=== PATIENT | male | born 1980 | race Caucasian/White ===

== ENCOUNTER 2021-06-03 09:06 | Emergency (ER) | payer OTHER ==
[~2021-06-03] VITALS: Ht 177.8 cm; Wt 96.5 kg
[2021-06-03 12:06] LABS: BASO # 0.1 10^3/uL (0.0-0.2); BASO % 0.6 % (0.0-1.0); EOS % 0.5 % (0.0-3.0); HEMATOCRIT 48.8 % (42.0-52.0); LYMPH # 1.6 10^3/uL (1.5-5.0); LYMPH % 20.6 % (24.0-44.0); MEAN CORPUSCULAR HEMOGLOBIN 32.5 pg (27.0-33.0); MEAN CORPUSCULAR HGB CONC 34.8 g/dl (32.0-36.5); MEAN CORPUSCULAR VOLUME 93.3 fl (80.0-96.0); MONO # 0.5 10^3/uL (0.0-0.8); MONO % 6.4 % (2.0-8.0); NEUTROPHILS # 5.7 10^3/uL (1.5-8.5); NEUTROPHILS % 71.6 % (36.0-66.0); PLATELET COUNT, AUTOMATED 190 10^3/uL (150-450); RED BLOOD COUNT 5.23 10^6/uL (4.30-6.10)
[2021-06-03 12:17] LABS: INR 0.97; PROTHROMBIN TIME 13.3 SECONDS (12.7-14.5)
[2021-06-03 12:19] LABS: D-DIMER QUANT 373.1 ng/ml (<500)
[2021-06-03] MEDS ORDERED: NS 1,000 ML IV ONE (12:45)
[2021-06-03 12:58] LABS: ALBUMIN 4.3 GM/DL (3.2-5.2); BILIRUBIN,DIRECT 0.2 MG/DL (0.0-0.2); BILIRUBIN,TOTAL 0.5 MG/DL (0.2-1.0); THYROID STIMULATING HORMONE 3.24 uIU/ML (0.358-3.740); THYROXINE (T4) 7.7 UG/DL (4.5-12.0); TOTAL PROTEIN 7.7 GM/DL (6.4-8.2)
[2021-06-03 14:22] VITALS: BP 155/94
== END 2021-06-03 15:39 | disposition home or self-care (01) ==
LOC: M ED 09:06
DX: R06.02 Shortness of breath (principal); R05.9 Cough, unspecified; R53.83 Other fatigue